=== PATIENT | female | born 2005 | race Caucasian/White ===

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

== ENCOUNTER → 2023-04-23 | Outpatient (REF) | payer OTHER ==
[2023-04-23 19:10] LABS: GC DNA AMPLIFICATION NEGATIVE (NEGATIVE)
== END ==
LOC: M LAB REF 16:55
PROVIDERS: ATTEND Registered Nurse
DX: Z11.3 Encounter for screening for infections with a predominantly sexual mode of transmission (principal); R30.0 Dysuria

== ENCOUNTER → 2023-10-11 | Outpatient (REF) | payer OTHER ==
[~2023-10-11] MED LIST changes: +NITR100C2; +ONDA4TAB6; +ONDA4TAB6 PO; +REGL10TA6 PO
[2023-10-11 18:11] LABS: APPEARANCE, URINE MANUAL CLEAR (CLEAR); COLOR, URINE MANUAL ORANGE (YELLOW); SPECIFIC GRAVITY,URINE MANUAL 1.017 (1.002-1.035)
[2023-10-11 18:13] LABS: BILIRUBIN, URINE MANUAL OBSCURED (NEGATIVE); BLOOD URINE MANUAL NEGATIVE (NEGATIVE); GLUCOSE, URINE (UA) MANUAL NEGATIVE (NEGATIVE); KETONE, URINE MANUAL OBSCURED mg/dL (NEGATIVE); LEUKOCYTE ESTERASE, URINE MAN OBSCURED (NEGATIVE); NITRITE, URINE MANUAL OBSCURED (NEGATIVE); PH,URINE MAN OBSCURED UNITS (5.0 - 7.0); PROTEIN, URINE MANUAL OBSCURED mg/dL (NEGATIVE); UROBILINOGEN, URINE MANUAL OBSCURED mg/dl (NORMAL)
[2023-10-11 18:43] LABS: RBC, URINE 0-1 /hpf (0-3); SQUAMOUS EPITHELIAL CELL URINE SMALL AMOUNT /hpf (SMALL AMT); WBC, URINE 40-50 /hpf (0-3)
[2023-10-11 18:44] LABS: BACTERIA, URINE NONE SEEN; HYALINE CAST, URINE NONE SEEN /lpf (0-1); MUCUS, URINE SMALL AMOUNT (NEGATIVE); URIC ACID CRYSTALS, URINE MOD AMOUNT /hpf
[2023-10-11 18:45] LABS: AMORPHOUS SEDIMENT, URINE MOD AMOUNT (NEGATIVE)
== END ==
LOC: M LAB REF 16:53
PROVIDERS: ATTEND Registered Nurse
DX: R30.0 Dysuria (principal)

== ENCOUNTER 2023-10-13 09:45 | Emergency (ER) | payer OTHER ==
[~2023-10-13] VITALS: Ht 157.5 cm; Wt 60.4 kg
[~2023-10-13 09:45] MED LIST changes: -NITR100C2; -ONDA4TAB6; -ONDA4TAB6 PO; -REGL10TA6 PO
[2023-10-13] MEDS ORDERED: NITR100C2 (09:52)
[2023-10-13] MEDS ORDERED: ONDA4TAB6 (09:52)
[2023-10-13] MEDS: ONDANSETRON 4MG 2ML VIAL IV ONE (11:30)
[2023-10-13] MEDS: NS 1,000 ML IV ONE ×2 (11:30→13:21)
[2023-10-13 11:39] LABS: BASO % 0.3 % (0.0-1.0); EOS % 0.1 % (0.0-3.0); HEMATOCRIT 38.3 % (36.0-47.0); HEMOGLOBIN 12.7 g/dl (12.0-15.5); LYMPH # 0.9 10^3/uL (1.5-5.0); MEAN CORPUSCULAR HEMOGLOBIN 28.8 pg (27.0-33.0); MEAN CORPUSCULAR HGB CONC 33.2 g/dl (32.0-36.5); MEAN CORPUSCULAR VOLUME 86.8 fl (80.0-96.0); MONO # 0.7 10^3/uL (0.0-0.8); MONO % 8.8 % (2.0-8.0); NEUTROPHILS # 6.1 10^3/uL (1.5-8.5); NEUTROPHILS % 78.7 % (36.0-66.0); PLATELET COUNT, AUTOMATED 345 10^3/uL (150-450); RED BLOOD COUNT 4.41 10^6/uL (4.00-5.40); WHITE BLOOD COUNT 7.7 10^3/uL (4.0-10.0)
[2023-10-13 12:03] LABS: LIPASE 19 U/L (12-53)
[2023-10-13 12:05] LABS: ACETONE/KETONE 0.82 MMOL/L (0.02-0.27); ALBUMIN 3.9 G/DL (3.2-5.2); ALKALINE PHOSPHATASE 63 U/L (46-116); ALT/SGPT < 9 U/L (7.0-40); AST/SGOT 12 U/L (<34); BILIRUBIN,DIRECT 0.1 MG/DL (<0.4); BILIRUBIN,TOTAL 0.4 MG/DL (0.3-1.2); BLOOD UREA NITROGEN 5 MG/DL (9-23); CALCIUM LEVEL 9.5 MG/DL (8.5-10.1); CARBON DIOXIDE LEVEL 30 MMOL/L (20-31); CHLORIDE LEVEL 103 MMOL/L (98-107); CREATININE FOR GFR 0.58 MG/DL (0.55-1.30); GLUCOSE, FASTING 111 MG/DL (60-100); POTASSIUM SERUM 3.8 MMOL/L (3.5-5.1); SODIUM LEVEL 138 MMOL/L (136-145); TOTAL PROTEIN 7.2 G/DL (5.7-8.2)
[2023-10-13 12:19] LABS: APPEARANCE, URINE CLEAR (CLEAR); BACTERIA, URINE AUTO NEGATIVE (NEGATIVE); BILIRUBIN, URINE AUTO NEGATIVE (NEGATIVE); BLOOD, URINE BLOOD NEGATIVE (NEGATIVE); COLOR, URINE YELLOW (YELLOW); GLUCOSE, URINE (UA) AUTO NEGATIVE (NEGATIVE); KETONE, URINE AUTO 2+ mg/dL (NEGATIVE); LEUKOCYTE ESTERASE, URINE AUTO TRACE (NEGATIVE); MUCUS, URINE SMALL (NEGATIVE); NITRITE, URINE AUTO NEGATIVE (NEGATIVE); PROTEIN, URINE AUTO NEGATIVE (NEGATIVE); RBC, URINE AUTO 0 /HPF (0-3); SPECIFIC GRAVITY URINE AUTO 1.009 (1.002-1.035); SQUAMOUS EPITHELIAL CELL UR AU 1 /HPF (0-6); UROBILINOGEN, URINE AUTO 0.2 mg/dL (0.0-2.0); WBC, URINE AUTO 6 /HPF (0-3)
[2023-10-13 12:30] LABS: RSV AMPLIFICATION NEGATIVE (NEGATIVE)
[2023-10-13] MEDS: METOCLOPRAMIDE INJ 10MG/2ML VIAL IV ONE (12:37)
[2023-10-13] MEDS: cefTRIAXone SOD 1 GM in D5W MINI-BAG PLUS 50 ML IV ONE (12:47)
[2023-10-13] MEDS ORDERED: D5W 1,000 ML IV ONE (13:45)
[2023-10-13] MEDS ORDERED: D5W/0.45% SODIUM CHLORIDE 1,000 ML IV ONE (13:50)
[2023-10-13] MEDS: D5W/0.9% SODIUM CHLORIDE 1,000 ML IV ONE (13:53)
[2023-10-13 15:12] VITALS: BP 118/73; TEMP 98.4; O2SAT 100
[2023-10-13] MEDS ORDERED: ONDA4TAB6 PO (16:22)
[2023-10-14] MEDS ORDERED: REGL10TA6 PO (14:19)
== END 2023-10-13 16:33 | disposition home or self-care (01) ==
LOC: M ED 09:45
DX: R82.4 Acetonuria (principal); E86.0 Dehydration; E10.9 Type 1 diabetes mellitus without complications; Z79.4 Long term (current) use of insulin; Z88.2 Allergy status to sulfonamides
CPT/HCPCS: 80048; 80076; 81001; 82010; 83690; 84702; 85025; 87631; 96361; 96365; 96375; 99284; J0696; J2405; J2765

== ENCOUNTER 2023-10-14 11:30 | Emergency (ER) | payer OTHER ==
[~2023-10-14] VITALS: Ht 157.5 cm; Wt 60.7 kg
[~2023-10-14 11:30] MED LIST changes: +NITR100C2; +ONDA4TAB6; +ONDA4TAB6 PO
[2023-10-14] MEDS: NS 1,000 ML IV ONE (12:13)
[2023-10-14] MEDS: METOCLOPRAMIDE INJ 10MG/2ML VIAL IV ONE (12:13)
[2023-10-14 12:19] LABS: VENOUS BASE EXCESS -0.5 (-2.0-2.0); VENOUS HCO3 24.9 MMOL/L (23.0-27.0); VENOUS O2 SATURATION 73.8 % (60.0-80.0); VENOUS PARTIAL PRESSURE CO2 43.7 mmHg (38.0-50.0); VENOUS PARTIAL PRESSURE O2 38.1 mmHg (30.0-50.0); VENOUS PH 7.374 UNITS (7.330-7.430); VENOUS STANDARD HCO3 23.6 MMOL/L; VENOUS TOTAL CO2 26.3 MMOL/L (24.0-28.0)
[2023-10-14 12:29] LABS: BASO % 0.5 % (0.0-1.0); EOS % 0.3 % (0.0-3.0); HEMATOCRIT 35.1 % (36.0-47.0); HEMOGLOBIN 11.9 g/dl (12.0-15.5); LYMPH # 0.9 10^3/uL (1.5-5.0); LYMPH % 15.3 % (24.0-44.0); MEAN CORPUSCULAR HEMOGLOBIN 29.5 pg (27.0-33.0); MEAN CORPUSCULAR HGB CONC 33.9 g/dl (32.0-36.5); MEAN CORPUSCULAR VOLUME 86.9 fl (80.0-96.0); MONO # 0.5 10^3/uL (0.0-0.8); MONO % 9.2 % (2.0-8.0); NEUTROPHILS # 4.4 10^3/uL (1.5-8.5); NEUTROPHILS % 74.4 % (36.0-66.0); PLATELET COUNT, AUTOMATED 359 10^3/uL (150-450); RED BLOOD COUNT 4.04 10^6/uL (4.00-5.40); WHITE BLOOD COUNT 5.9 10^3/uL (4.0-10.0)
[2023-10-14 12:39] LABS: APPEARANCE, URINE HAZY (CLEAR); BACTERIA, URINE AUTO NEGATIVE (NEGATIVE); BILIRUBIN, URINE AUTO NEGATIVE (NEGATIVE); BLOOD, URINE BLOOD NEGATIVE (NEGATIVE); COLOR, URINE YELLOW (YELLOW); GLUCOSE, URINE (UA) AUTO NEGATIVE (NEGATIVE); KETONE, URINE AUTO 2+ mg/dL (NEGATIVE); LEUKOCYTE ESTERASE, URINE AUTO NEGATIVE (NEGATIVE); MUCUS, URINE SMALL (NEGATIVE); NITRITE, URINE AUTO NEGATIVE (NEGATIVE); PROTEIN, URINE AUTO NEGATIVE (NEGATIVE); RBC, URINE AUTO 2 /HPF (0-3); SQUAMOUS EPITHELIAL CELL UR AU 7 /HPF (0-6); UROBILINOGEN, URINE AUTO 0.2 mg/dL (0.0-2.0); WBC, URINE AUTO 9 /HPF (0-3)
[2023-10-14 12:50] LABS: ALBUMIN 3.8 G/DL (3.2-5.2); ALKALINE PHOSPHATASE 59 U/L (46-116); ALT/SGPT < 9 U/L (7.0-40); AST/SGOT 9 U/L (<34); BILIRUBIN,DIRECT 0.1 MG/DL (<0.4); BILIRUBIN,TOTAL 0.4 MG/DL (0.3-1.2); BLOOD UREA NITROGEN < 5 MG/DL (9-23); CALCIUM LEVEL 9.4 MG/DL (8.5-10.1); CARBON DIOXIDE LEVEL 27 MMOL/L (20-31); CHLORIDE LEVEL 105 MMOL/L (98-107); CREATININE FOR GFR 0.56 MG/DL (0.55-1.30); GLUCOSE, FASTING 120 MG/DL (60-100); SODIUM LEVEL 140 MMOL/L (136-145); TOTAL PROTEIN 6.9 G/DL (5.7-8.2)
[2023-10-14] MEDS ORDERED: REGL10TA6 PO (14:19)
[2023-10-14 14:26] VITALS: BP 110/58; TEMP 98.5; O2SAT 97
== END 2023-10-14 14:29 | disposition home or self-care (01) ==
LOC: M ED 12:09
DX: R11.2 Nausea with vomiting, unspecified (principal); E86.0 Dehydration; E71.32 Disorders of ketone metabolism; Z88.2 Allergy status to sulfonamides; Z79.1 Long term (current) use of non-steroidal anti-inflammatories (NSAID); Z79.891 Long term (current) use of opiate analgesic; Z79.899 Other long term (current) drug therapy
CPT/HCPCS: 80048; 80076; 81001; 82010; 82803; 83930; 85025; 96361; 96374; 99284; J2765

== ENCOUNTER → 2024-05-30 | Outpatient (REF) | payer OTHER ==
[~2024-05-30] MED LIST changes: +ONDA-282; +ONDA-282 PO; -ONDA4TAB6; -ONDA4TAB6 PO; +REGL10TA6 PO
[2024-05-30 15:44] LABS: GC DNA AMPLIFICATION NEGATIVE (NEGATIVE)
== END ==
LOC: M LAB REF 12:29
PROVIDERS: ATTEND Nurse Practitioner Family
DX: Z00.00 Encounter for general adult medical examination without abnormal findings (principal)

== ENCOUNTER → 2025-06-05 | Outpatient (REF) | payer OTHER ==
[2025-06-05 15:24] LABS: GC DNA AMPLIFICATION NEGATIVE (NEGATIVE)
== END ==
LOC: M LAB REF 13:17
PROVIDERS: ATTEND Nurse Practitioner Family
DX: Z00.00 Encounter for general adult medical examination without abnormal findings (principal)